=== PATIENT | female | born 1940 | race Caucasian/White ===

== ENCOUNTER 2017-02-06 22:03 | Emergency (ER) | payer OTHER ==
[2017-02-06 22:17] VITALS: BP 156/84; PULSE 87; TEMP 97.8; BMI 21.9
[2017-02-06 22:23] LABS: URINE APPEARANCE SLCLOUDY; URINE BILIRUBIN NEGATIVE (NEGATIVE); URINE COLOR RED; URINE GLUCOSE (UA) 1+ (NEGATIVE); URINE KETONE NEGATIVE (NEGATIVE); URINE NITRITE NEGATIVE (NEGATIVE); URINE UROBILINOGEN NEGATIVE E.U./dl (0.2-1.0)
[2017-02-06] MEDS ORDERED: ACETAMINOPHEN 325 MG TABLET (FP) PO ONE (22:27)
[2017-02-06] MEDS ORDERED: ACETAMINOPHEN 325 MG TABLET (FP) ONE (22:34)
--- NOTE | 2017-02-06 22:36 | PDOC ---
History of Present Illness - General History Source: Patient Exam Limitations: No Limitations - History of Present Illness Initial Comments: 02/06/17 22:38 The patient is a 76 year old female presenting with family, with a significant past medical history of UTI, HTN, HLD, diabetes and diverticulitis, who presents to the emergency department with urgency, dysuria and hematuria onset today. She states that she was having urgency and all of a sudden she started to have frequency and hematuria. She denies taking any kind of pain medications prior to arriving to the ED. The patient denies chest pain, shortness of breath, headache and dizziness. Denies fever, chills, nausea, vomit, diarrhea and constipation. Allergies: Penicilin Past surgical history: None reported Social history: No alcohol, tobacco or drug use reported <Monroe Herman - Last Filed: 02/06/17 22:37> - General History Source: Patient Exam Limitations: No Limitations <Phillip Alcazar - Last Filed: 02/06/17 23:25> - General Chief Complaint: Urinary Problem Stated Complaint: VAGINAL BLEEDING Time Seen by Provider: 02/06/17 22:24 Past History <Monroe Herman - Last Filed: 02/06/17 22:37> - Past Medical History Diabetes: Yes (IDDM) HTN: Yes Hypercholesterolemia: Yes - Psycho/Social/Smoking Cessation Hx Suicidal Ideation: No Smoking History: Never smoked Have you smoked in the past 12 months: No Hx Alcohol Use: No Drug/Substance Use Hx: No <Phillip Alcazar - Last Filed: 02/06/17 23:25> - Past Medical History Allergies/Adverse Reactions: Allergies Allergy/AdvReac Type Severity Reaction Status Date / Time Penicillins Allergy Verified 02/06/17 22:08 Home Medications: Ambulatory Orders Insulin Glargine,Hum.rec.anlog [Lantus (10mL VIAL) -] 20 units SQ HS 07/30/16 Losartan Potassium [Cozaar] 100 mg PO DAILY 07/30/16 Pravastatin Sodium [Pravachol -] 25 mg PO HS 07/30/16 Sitagliptin Phos/Metformin HCl [Janumet 50-1,000 mg Tablet] 1,000 mg PO BID 08/03 Sulfamethoxazole/Trimethoprim [Bactrim Ds -] 1 tab PO BID #14 tablet 02/06/17 Review of Systems - Review of Systems Able to Perform ROS?: Yes Comments:: 02/06/17 22:38 GENERAL/CONSTITUTIONAL: No fever or chills. No weakness. HEAD, EYES, EARS, NOSE AND THROAT: No change in vision. No ear pain or discharge. No sore throat. CARDIOVASCULAR: No chest pain or shortness of breath RESPIRATORY: No cough, wheezing, or hemoptysis. GASTROINTESTINAL: No nausea, vomiting, diarrhea or constipation. GENITOURINARY: (+) dysuria, urgency, frequency, and hematuria. MUSCULOSKELETAL: No joint or muscle swelling or pain. No neck or back pain. SKIN: No rash NEUROLOGIC: No headache, vertigo, loss of consciousness, or change in strength/ sensation. ENDOCRINE: No increased thirst. No abnormal weight change HEMATOLOGIC/LYMPHATIC: No anemia, easy bleeding, or history of blood clots. ALLERGIC/IMMUNOLOGIC: No hives or skin allergy. <Monroe Herman - Last Filed: 02/06/17 22:37> *Physical Exam - Vital Signs Last Vital Signs Temp Pulse Resp BP Pulse Ox 97.8 F 87 18 156/84 100 02/06/17 22:15 02/06/17 22:15 02/06/17 22:15 02/06/17 22:15 02/06/17 22:15 - Physical Exam Comments: 02/06/17 22:38 GENERAL: Awake, alert, and fully oriented, in no acute distress HEAD: No signs of trauma, normocephalic, atraumatic EYES: PERRLA, EOMI, sclera anicteric, conjunctiva clear ENT: Auricles normal inspection, hearing grossly normal, nares patent, oropharynx clear without exudates. Moist mucosa NECK: Normal ROM, supple, no lymphadenopathy, JVD, or masses LUNGS: No distress, speaks full sentences, clear to auscultation bilaterally HEART: Regular rate and rhythm, normal S1 and S2, no murmurs, rubs or gallops, peripheral pulses normal and equal bilaterally. ABDOMEN: Soft, nontender, normoactive bowel sounds. No guarding, no rebound. No masses EXTREMITIES: Normal inspection, Normal range of motion, no edema. No clubbing or cyanosis. NEUROLOGICAL: Cranial nerves II through XII grossly intact. Normal speech, normal gait, no focal sensorimotor deficits SKIN: Warm, Dry, normal turgor, no rashes or lesions noted. <Monroe Herman - Last Filed: 02/06/17 22:37> - Vital Signs Last Vital Signs Temp Pulse Resp BP Pulse Ox 97.8 F 87 18 156/84 100 02/06/17 22:15 02/06/17 22:15 02/06/17 22:15 02/06/17 22:15 02/06/17 22:15 <Phillip Alcazar - Last Filed: 02/06/17 23:25> ED Treatment Course - Medications Given in the ED: ED Medications Discontinued Medications Generic Name Dose Route Start Last Admin Trade Name Freq PRN Reason Stop Dose Admin Acetaminophen 650 mg 02/06/17 22:27 02/06/17 22:36 Tylenol - PO 02/06/17 22:28 650 mg ONCE ONE Administration <Monroe Herman - Last Filed: 02/06/17 22:37> Medical Decision Making - Medical Decision Making 02/06/17 23:19 A portion of this note was documented by scribe services under my direction. I have reviewed the details of the note, within reason, and agree with the documentation with the following case summary and management plan written by me. Patient treated in the ED. Nursing notes are reviewed and incorporated into the medical decision-making. Vital signs reviewed. Peripheral IV access obtained by the nurse, laboratory studies are drawn and sent, reviewed and interpreted by myself. Vital Signs Temp Pulse Resp BP Pulse Ox 97.8 F 87 18 156/84 100 02/06/17 22:15 02/06/17 22:15 02/06/17 22:15 02/06/17 22:15 02/06/17 22:15 76-year-old female with history of hypertension, diabetes, hyperlipidemia presents with dysuria, urinary frequency and hematuria. Reported several hours prior to arrival. Denies fevers, abdominal pain. Urine Test Results Urine Color Red 02/06/17 22:15 Urine Appearance Slcloudy 02/06/17 22:15 Urine pH 6.0 (5.0-8.0) 02/06/17 22:15 Urine Protein 2+ (NEGATIVE) H 02/06/17 22:15 Urine Glucose (UA) 1+ (NEGATIVE) H 06/21/17 22:15 Urine Ketones Negative (NEGATIVE) 02/06/17 22:15 Urine Blood 2+ (NEGATIVE) H 02/06/17 22:15 Urine Nitrite Negative (NEGATIVE) 02/06/17 22:15 Urine Bilirubin Negative (NEGATIVE) 02/06/17 22:15 Ur Leukocyte Esterase 1+ (NEGATIVE) H 02/06/17 22:15 Urine RBC 2523 /hpf (0-3) 02/06/17 22:15 Urine WBC 1407 /hpf (3-5) 02/06/17 22:15 Patient's urine results are likely a urinary tract infection. I did expect to results that if patient continues of hematuria, she will be ruled out for bladder cancer. She understands that she'll follow with her doctor for potential cystoscopy. At this time, we'll treat as cystitis. Patient agrees with plan. Return precautions given. Patient given Bactrim. Rash precautions given. Patient call back for the urine culture results. I discussed the physical exam findings, ancillary test results and final diagnoses with the patient. I answered all of the patient's questions. The patient was satisfied with the care received and felt comfortable with the discharge plan and treatment plan. The patient will call their primary care physician within 24 hours to arrange follow-up and will return to the Emergency Department with any new, persistant or worsening symptoms. <Phillip Alcazar - Last Filed: 02/06/17 23:25> *DC/Admit/Observation/Transfer - Attestations Scribe Attestion: 02/06/17 22:38 Documentation prepared by Monroe Herman, acting as hospitalist medical director for Phillip Alcazar MD <Monroe Herman - Last Filed: 02/06/17 22:37> - Discharge Dispostion Admit: No <Phillip Alcazar - Last Filed: 02/06/17 23:25> Diagnosis at time of Disposition: UTI (urinary tract infection) Qualifiers: Urinary tract infection type: acute cystitis Hematuria presence: with hematuria Qualified Code(s): N30.01 - Acute cystitis with hematuria - Discharge Dispostion Disposition: HOME Condition at time of disposition: Stable - Prescriptions Prescriptions: Sulfamethoxazole/Trimethoprim [Bactrim Ds -] 1 tab PO BID #14 tablet - Referrals Referrals: Myles Estes MD [Staff Physician] - - Patient Instructions Printed Discharge Instructions: DI for Hematuria, DI for Urinary Tract Infection (UTI) Additional Instructions: Please take a tablet Bactrim every 12 hours and neck 7 days for your urinary tract infection. Please call your doctor and let him know that urine emergency department. With bloody urine, most causes are urinary tract infection. However , every small percentage patient's need to be value for potential bladder cancer. Please discuss this with your doctor for potential referral for cystoscopy. Call [phone] option 1 in the next 48 hours for the urine culture.
[2017-02-06 22:41] LABS: URINE BLOOD 2+ (NEGATIVE); URINE LEUK ESTERASE 1+ (NEGATIVE); URINE PROTEIN 2+ (NEGATIVE)
[2017-02-06 22:49] LABS: URINE HYALINE CAST 36 /lpf; URINE RBC 2523 /hpf (0-3); URINE WBC 1407 /hpf (3-5)
[2017-02-06] MEDS ORDERED: SULFAMETHOXAZOLE/TRIMETHOPRIM 800MG/160MG D.S. TABLET PO ONE (23:16)
[2017-02-06] MEDS ORDERED: SULFAMETHOXAZOLE/TRIMETHOPRIM 800MG/160MG D.S. TABLET ONE (23:20)
== END 2017-02-06 23:33 | disposition home or self-care (01) ==
LOC: JER 22:03
DX: N30.01 Acute cystitis with hematuria (principal); I10 Essential (primary) hypertension; E78.00 Pure hypercholesterolemia, unspecified; E78.5 Hyperlipidemia, unspecified; E11.9 Type 2 diabetes mellitus without complications; Z79.4 Long term (current) use of insulin; Z79.84 Long term (current) use of oral hypoglycemic drugs
CPT/HCPCS: 81003; 81015; 87086; 87186; 99282-25